=== PATIENT | male | born 1990 | race Caucasian/White ===

== ENCOUNTER 2020-02-08 20:51 | Emergency (ER) | payer OTHER ==
--- NOTE | 2020-02-08 21:14 | EDM.PDOC ---
ED HPI GENERAL MEDICAL PROBLEM - General Chief Complaint: Upper Extremity Injury/Pain Stated Complaint: LEFT WRIST PAIN S[facility] Time Seen by Provider: 02/08/20 20:59 Source of Information: Reports: Patient History Limitations: Reports: No Limitations - History of Present Illness INITIAL COMMENTS - FREE TEXT/NARRATIVE: The patient presents with left wrist pain. This started a few days ago. He denies any injury. He is disabled and does not work. He does play guitar and video games. He noticed he has been missing some cords. He has some tingling at times in his fingers and hand. He has no weakness at this time. He does not wake up with numbness or tingling in his hands at night. Onset: Gradual Duration: Day(s): Location: Reports: Upper Extremity, Left Quality: Reports: Ache Severity: Mild Improves with: Reports: None Worsens with: Reports: None Associated Symptoms: Reports: No Other Symptoms Left Wrist Pain Score (Numeric/FACES): 1 Review of Systems - Review of Systems Review Of Systems: See Below Constitutional: Reports: No Symptoms Eyes: Reports: No Symptoms Ears: Reports: No Symptoms Nose: Reports: No Symptoms Mouth/Throat: Reports: No Symptoms Respiratory: Reports: No Symptoms Cardiovascular: Reports: No Symptoms GI/Abdominal: Reports: No Symptoms Genitourinary: Reports: No Symptoms Musculoskeletal: Reports: Other (Tingling and pain to the left wrist) ED EXAM, GENERAL - Physical Exam Exam: See Below Exam Limited By: No Limitations General Appearance: Alert, No Apparent Distress Ears: Normal External Exam Nose: Normal Inspection Head: Atraumatic, Normocephalic Neck: Normal Inspection Respiratory/Chest: No Respiratory Distress Extremities: Other (Good strength in his hand and wrist. Good sensation. Symptoms were reproduced by tapping on the volar wrist and flezing his wrist on the left arm.) Course - Vital Signs Last Recorded V/S: Last Vital Signs Temp 97.2 F 02/08/20 20:58 Pulse 82 02/08/20 20:58 Resp 18 02/08/20 20:58 BP 148/95 H 02/08/20 20:58 Pulse Ox 97 02/08/20 20:58 - Re-Assessments/Exams Free Text/Narrative Re-Assessment/Exam: 02/08/20 21:12 I feel he has carpal tunnel syndrome. I will get him a wrist splint and follow up with Dr Baugh. Departure - Departure Time of Disposition: 21:15 Disposition: Home, Self-Care 01 Condition: Good Clinical Impression: Carpal tunnel syndrome of left wrist - Discharge Information *PRESCRIPTION DRUG MONITORING PROGRAM REVIEWED*: Not Applicable *COPY OF PRESCRIPTION DRUG MONITORING REPORT IN PATIENT FABRICIO: Not Applicable Referrals: Abbey Bernal MD [Primary Care Provider] - Joseph Baugh MD [Physician] - 2 Weeks Additional Instructions: Try to wear the splint most of the day and even at night for a week or two. Take tylenol or motrin for any pain. It is okay to play [employer] and video games just reduce the time for a week and if it hurts or causes numbness stop. Follow up with Dr Baugh our orthopedic surgeon in [facility]. Please return if you are worse. Sepsis Event Note - Evaluation Sepsis Screening Result: No Definite Risk - Focused Exam Vital Signs: Vital Signs Temp Pulse Resp BP Pulse Ox 02/08/20 20:58 97.2 F 82 18 148/95 H 97 Date Exam was Performed: 02/08/20 Time Exam was Performed: 21:08
== END 2020-02-08 21:30 | disposition home or self-care (01) ==
LOC: JD.ED 20:51
DX: G56.02 Carpal tunnel syndrome, left upper limb (principal)
CPT/HCPCS: 99283